=== PATIENT | male | born 1965 | race Caucasian/White ===

== ENCOUNTER 2019-01-20 05:36 | Day surgery (SDC) | payer BC ==
[2019-01-20] MEDS ORDERED: MIDAZOLAM HCL 2MG/2ML VIAL IV ONE (05:37)
[2019-01-20] MEDS ORDERED: ONDANSETRON HCL IV 4 MG/2 ML VIAL IVP ONE (05:37)
[2019-01-20] MEDS ORDERED: KETAMINE HCL 100MG/1ML VIAL INJ ONE (05:37)
[2019-01-20] MEDS ORDERED: PROPOFOL 10 MG/ML VIAL IV ONE (05:37)
[2019-01-20] MEDS ORDERED: ACETAMINOPHEN 1,000 MG/100 ML BTL IVPB ONE (06:00)
[2019-01-20] MEDS ORDERED: 0.9 % SODIUM CHLORIDE 1000ML 1,000 ML IV ONE (06:15)
[2019-01-20] MEDS ORDERED: LIDOCAINE 1% MPF 100MG/10ML STERILE-PAK AMPULE SQ ONE (08:01)
[2019-01-20] MEDS ORDERED: BUPIVACAINE 0.5% (5MG/ML) PF 30ML VIAL SQ ONE (08:01)
[2019-01-20] MEDS ORDERED: CEFAZOLIN 1G VIAL IVPB ONE (08:04)
--- NOTE | 2019-01-23 10:51 | Operative Note ---
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 OPERATION: Exostectomy, left hallux. SURGEON: Bull Adkins DPM ANESTHESIA: Local with IV sedation. INDICATIONS FOR PROCEDURE: The patient has chronic ulceration due to underlying bone spur plantar medial aspect of interphalangeal joint left hallux. X-ray shows large bone spur to interphalangeal joint medially left hallux. PROCEDURE IN DETAIL: The patient was brought to the OR suite and placed supine upon the OR table. After successful IV sedation was achieved, a left hallux block was given with approximately 15 mL of a 50/50 mixture of 1% lidocaine plain and 0.5% Marcaine plain. Left foot, ankle, and leg were prepped and draped in the usual sterile manner. No tourniquet utilized. C-arm indicated significant bone spurring to the medial and plantar aspects of the interphalangeal joint of the left hallux. Incision outlined and made overlying the bone spur left hallux approximately 3.5 cm in length. Sharp and blunt dissection utilized to deep in the incision. All vital structures identified and retracted without difficulty. Dissection taken down to the level of the capsule. Linear capsulotomy performed and reflected exposing large exostosis to the interphalangeal joint which was removed with a power sagittal saw cooled with saline under C-arm guidance. Bone was white and hard, did not show any signs of osteomyelitis. Culture taken of bone aerobic and anaerobic and bone sent for pathologic exam to evaluate for unlikely osteomyelitis. No rough areas were left intact left great after bone was rasped with saw. Wound was flushed with copious amounts of sterile saline. Capsule and subcu level closed in simple interrupted fashion with 3-0 Vicryl. Skin closed in simple interrupted fashion with 4-0 nylon. A combination of Adaptic, 4 x 4's, 4- inch Eduar, and Reyes wrap was applied. The patient tolerated the procedure well and was transferred to recovery room in stable condition vascular status intact. He is to minimize ambulation with CAM boot, take pain medication as prescribed, contact me by cell phone as needed, and keep dressing clean, dry, and intact. Follow up in the office in approximately 10 days. JONATHAN
== END 2019-01-20 09:10 | disposition home or self-care (01) ==
LOC: SUR 05:36
PROVIDERS: ATTEND Podiatrist
DX: M25.775 Osteophyte, left foot (principal); L97.529 Non-pressure chronic ulcer of other part of left foot with unspecified severity; I10 Essential (primary) hypertension; E78.00 Pure hypercholesterolemia, unspecified; E11.9 Type 2 diabetes mellitus without complications; I99.8 Other disorder of circulatory system; Z89.429 Acquired absence of other toe(s), unspecified side
CPT/HCPCS: 28288; 01480; 36416; 82948; J2405; J3490; J0690; J7030